=== PATIENT | female | born 1950 | race Caucasian/White ===

== ENCOUNTER 2017-05-12 08:00 | Outpatient (CLI) | payer MEDICARE | END 2017-05-12 08:01 | disposition home or self-care (01) | LOC: BICMAMMO 08:00 | PROVIDERS: ATTEND Obstetrics & Gynecology | DX: Z12.31 Encounter for screening mammogram for malignant neoplasm of breast (principal); Z85.3 Personal history of malignant neoplasm of breast | CPT/HCPCS: 77063; G0202; 77067 ==

== ENCOUNTER 2017-06-18 07:38 | Observation (INO) | payer MEDICARE, OTHER ==
[2017-06-18] MEDS ORDERED: Nitroglycerin 2% Ointment 1 INCH/1 GM Packet ONE (08:06)
[2017-06-18] MEDS ORDERED: Ondansetron HCl/PF 4 MG/2 ML Vial ONE (08:16)
[2017-06-18 08:23] LABS: #Lymphocytes 1.4 thou/uL (1.20-3.40); #Monocytes 0.6 thou/uL (0.11-0.59); #Neutrophils 9.7 thou/uL (1.40-6.50); %Basophils 0.1 % (0.0-1.0); %Eosinophils 0.4 % (0.0-10.0); %Lymphocytes 11.9 % (21.0-51.0); %Neutrophils 82.6 % (42.0-75.0); Mean Corpuscular HGB CONC 32.9 g/dL (32.0-36.0); Mean Corpuscular Hemoglobin 31.4 pg (27.0-31.0); Mean Corpuscular Volume 95.4 fl (81.0-99.0); Platelet Count 239 thou/uL (130-400); RBC Distribution Width 11.3 % (11.5-14.5); White Blood Cell (WBC) Count 11.7 thou/uL (4.8-10.8)
[2017-06-18 08:34] LABS: ALT (SGPT) 26 U/L (8-55); AST (SGOT) 26 U/L (5-34); Albumin 4.1 g/dL (3.4-4.8); Alkaline Phosphatase 85 U/L (40-150); Anion Gap 15 mmol/L (10-20); BUN (Urea Nitrogen) 10 mg/dL (9.8-20.1); Bilirubin, Total 0.4 mg/dL (0.2-1.2); CK (CPK) 89 U/L (29-168); Calc. Creatinine Clearance 0 mL/min (70-130); Carbon Dioxide 24 mmol/L (23-31); Chloride 102 mmol/L (98-107); Estimated GFR-MDRD 67; Globulin 3.8 g/dL (2.4-3.5); Glucose 119 mg/dL (80-115); Lipase 22 U/L (8-78); Potassium 3.9 mmol/L (3.5-5.1); Protein, Total 7.9 g/dL (6.0-8.3); Sodium 137 mmol/L (136-145)
[2017-06-18 08:37] LABS: CKMB 0.8 ng/mL (0-6.6); Troponin I 0.015 ng/mL (< 0.028)
--- NOTE | 2017-06-18 09:31 | RAD ---
PORTABLE UPRIGHT CHEST 1 VIEW: HISTORY: A 66-year-old female with chest pain with dizziness and nausea. COMPARISON: 08/01/09. FINDINGS: Monitor leads overlie the chest. Heart size is within normal limits. The lungs are clear. No pneum onia, edema, pleural effusion, or other acute process. IMPRESSION: No acute intrathoracic disease. POS: [facility]
[2017-06-18] MEDS ORDERED: Acetaminophen 500 MG TAB ONE (10:48)
[2017-06-18 11:23] LABS: Troponin I 0.044 ng/mL (< 0.028)
[2017-06-18] MEDS ORDERED: Guaifenesin DM 100-10/5 ML UDCUP PO PRN (12:01)
[2017-06-18] MEDS ORDERED: Acetaminophen 325 MG TAB PO PRN (12:01)
[2017-06-18 12:43] VITALS: BMI 20.3
[2017-06-18] MEDS: Nitroglycerin 2% Ointment 1 INCH/1 GM Packet TOP SCH ×2 (12:55→21:41)
[2017-06-18] MEDS: Sodium Chloride 0.9% 1,000 ML IV SCH (13:12)
[2017-06-18 14:35] LABS: Troponin I 0.061 ng/mL (< 0.028)
[2017-06-18] MEDS ORDERED: Calcium Carbonate 500 MG ChewTAB PO PRN (17:10)
--- NOTE | 2017-06-18 18:51 | CON ---
DATE OF CONSULTATION: 06/18/2017 REASON FOR CONSULTATION: Dizziness, lightheadedness and atypical chest pain. HISTORY OF PRESENT ILLNESS: Ms. Braxton is a 66-year-old woman with no previous history of underlying coronary artery disease who recently presented with dizziness and lightheadedness. Blood pressure a t this time was 177/90. She also had associated nausea. She describes shoulder blade discomfort on her left with arm radiation. No chest pressure noted. PAST MEDICAL HISTORY: Hypertension and breast cancer. PAST SURGICAL HISTORY: Appendectomy, mastectomy, and thyroidectomy. MEDICATIONS: Include bisoprolol/hydrochlorothiazide. REVIEW OF SYSTEMS: Ten point review of systems is reviewed as above, otherwise negative. PHYSICAL EXAMINATION: GENERAL: Patient is a pleasant female who is in no acute distress. The patient appears her stated a ge. VITAL SIGNS: Blood pressure 155/78, pulse 82, respirations 20. NEUROLOGIC: The patient is alert and oriented times 3 with no focal neurologic deficits. HEENT: Sclerae without icterus. Mouth has moist mucous membranes with normal pallor. NECK: No JVD. Carotid upstroke brisk. No bruits bilaterally. LUNGS: Clear to auscultation with unlabored respirations. BACK: No scoliosis or kyphosis. CARDIAC: Regular rate and rhythm with normal S1 and S2. No S3 or S4 noted. No significant rubs, murmurs, thrills, or gallops noted throughout the precordium. PMI is not displaced. There is no parasternal heave. ABDOMEN: Soft, nontender, nondistended. No peritoneal signs present. No hepatosplenomegaly. No abnormal striae. EXTREMITIES: 2+ femoral and 2+ dorsalis pedis pulses. No cyanosis, clubbing, or edema. SKIN: No gross abnormalities. PERTINENT LABORATORY DATA: Hemoglobin 12, creatinine 0.84, peak troponin 0.061, BNP of 1343. IMPRESSION: 1. Dizziness, lightheadedness and nausea. 2. Left arm pain. RECOMMENDATIONS: From a CV standpoint, this appears to be more consistent with dysrhythmia with dizz iness, lightheadedness, nausea, and angina. Would recommend an echo with Doppler and continue to mon itor on tele. Stress test has been ordered. If all of the above is negative, would recommend outpat ient event recorder to assess for significant dysrhythmias.
--- NOTE | 2017-06-18 19:09 | HP ---
REASON FOR ADMISSION: Chest pain, demand ischemia. HISTORY OF PRESENT ILLNESS: The patient gives history of sitting in a recliner around [address] [facility]. She was having her second cup of coffee. She suddenly started feeling dizzy and felt nauseated. When she tried to get up, this made her vomit nearly two times. She had to close her eyes to feel comfortable. Whenever she tried to open her eyes, she would feel dizzy and throw up again. She also mentions that her sinuses are being full from last 1 week and thought this was all related to that. Around this time, she started to have chest discomfort with radiation to her neck and left upper ext remity. She quietly sat down and was waiting for her to wake up. This happened around 5:30 and patient called EMS and came here. The chest discomfort was off and on. No complaints of palpita tions, PND or orthopnea. The patient also was thinking that she has had left radical mastectomy and thought that her scarring of tissues might have caused this pain. The patient has had a stress test before 1990 and as far she knows was negative. She has never had angiogram before. PAST MEDICAL AND SURGICAL HISTORY: Hypertension, history of breast cancer with left radical mastecto my in 1990 and has finished tamoxifen course for 5 years after that. Right lobe thyroidectomy, appen dectomy. CURRENT MEDICATIONS: The patient is on bisoprolol, hydrochlorothiazide 2.5/6.25 mg p.o. daily, multi vitamin 1 tab once daily, calcium with vitamin D3 two tabs daily. ALLERGIES: No known drug allergies. PERSONAL HISTORY: Does not abuse alcohol or drugs. No history of smoking. FAMILY HISTORY: Mom of kidney issues at the age of 42 years. Father at the age of 88 year s. She has had history of stroke and coronary artery disease. CODE STATUS: FULL. 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 REVIEW OF SYSTEMS: The following complete review of systems was negative, unless otherwise mentioned in the HPI or below: Constitutional: Weight loss or gain, ability to conduct usual activities. Skin: Rash, itching. Eyes: Double vision, pain. ENT/Mouth: Nose bleeding, neck stiffness, pain, tenderness. Cardiovascular: Palpitations, dyspnea on exertion, orthopnea. Respiratory: Shortness of breath, wheezing, cough, hemoptysis, fever or night sweats. Gastrointestinal: Poor appetite, abdominal pain, heartburn, nausea, vomiting, constipation, or diarr hea. Genitourinary: Urgency, frequency, dysuria, nocturia. Musculoskeletal: Pain, swelling. Neurologic/Psychiatric: Anxiety, depression. Allergy/Immunologic: Skin rash, bleeding tendency. PHYSICAL EXAMINATION: GENERAL: The patient is a 66-year-old female who is currently not in any chest pain or distress. VITAL SIGNS: Blood pressure 182/90, pulse 90 per minute, respiratory rate 20 per minute, temperature 98.2 degrees Fahrenheit, saturating 97% on room air. NECK: Supple, no elevated JVD. EYES: Extraocular muscles intact. Pupils reacting to light. ORAL CAVITY: Mucous membranes are moist. No exudates or congestion. CARDIOVASCULAR SYSTEM: S1, S2 heard. Regular rhythm. RESPIRATORY SYSTEM: Air entry 1+ bilaterally. No rales or rhonchi. ABDOMEN: Soft, bowel sounds heard. No tenderness, rigidity or guarding. EXTREMITIES: No peripheral edema or calf tenderness. VASCULAR SYSTEM: Peripheral pulses 2+ bilateral, no ischemic ulcerations or gangrene. CENTRAL NERVOUS SYSTEM: No gross focal deficits seen. Patient is alert, awake, oriented well. PSYCHIATRIC SYSTEM: The patient's mood is euthymic. No hallucinations or delusions. IMAGING DATA AND LABORATORY DATA: EKG done shows normal sinus rhythm at 90 beats per minute. There are signs of LVH. First set of troponin is negative. Second set is 0.04. BNP is 343, albumin is 4. 1. Chest x-ray done shows no acute cardiopulmonary abnormalities. White count of 11, hemoglobin and hematocrit 12 and 36, platelet count is 239 with 82% neutrophils. CLINICAL IMPRESSION AND PLAN: The patient will be under observation on telemetry for chest pain with indeterminate troponin and demand ischemia. She will be on nitro paste half inch q.8 hourly along w ith full dose Lovenox at 55 mg subcu twice daily. We will continue her on bisoprolol at 5 mg daily a long with aspirin. Normal saline at 50 mL per hour. We will obtain orthostatic blood pressures. A nuclear stress test along with echo with 2D Doppler will be obtained as well. We will consult Dr. Jayesh solis in view of her indeterminate cardiac enzymes for close monitoring during stress test. We angelito l continue to closely monitor her on telemetry floor.
[2017-06-18] MEDS: Enoxaparin Sodium 60 MG/0.6 ML SYRINGE SC SCH (20:29)
[2017-06-18] MEDS: Famotidine 20 MG TAB PO SCH (20:31)
[2017-06-19] MEDS: Nitroglycerin 2% Ointment 1 INCH/1 GM Packet TOP SCH ×2 (05:00→13:05)
[2017-06-19 05:33] LABS: #Eosinphils 0.1 thou/uL (0.0-0.7); #Monocytes 0.6 thou/uL (0.11-0.59); #Neutrophils 3.9 thou/uL (1.40-6.50); %Basophils 0.3 % (0.0-1.0); %Eosinophils 1.6 % (0.0-10.0); %Lymphocytes 30.6 % (21.0-51.0); %Monocytes 9.5 % (0.0-10.0); %Neutrophils 57.9 % (42.0-75.0); Hemoglobin 11.4 g/dL (12.0-16.0); Mean Corpuscular Hemoglobin 31.3 pg (27.0-31.0); Mean Corpuscular Volume 94.9 fl (81.0-99.0); Mean Platelet Volume 9.2 fL (7.4-10.4); Platelet Count 226 thou/uL (130-400); RBC Distribution Width 11.3 % (11.5-14.5); Red Blood Cell (RBC) Count 3.64 mill/uL (4.20-5.40); White Blood Cell (WBC) Count 6.7 thou/uL (4.8-10.8)
[2017-06-19 06:01] LABS: Anion Gap 13 mmol/L (10-20); BUN (Urea Nitrogen) 11 mg/dL (9.8-20.1); Calc. Creatinine Clearance 61 mL/min (70-130); Calcium 9.1 mg/dL (7.8-10.44); Carbon Dioxide 24 mmol/L (23-31); Cardiac Risk 5.8 (Less than 4.5); Chloride 108 mmol/L (98-107); Cholesterol 192 mg/dl (< 200 Desired); Estimated GFR-MDRD 71; Glucose 86 mg/dL (80-115); HDL Cholesterol 33 mg/dL (>60 Neg Risk); LDL Cholesterol, Calculated 137 mg/dL; Potassium 4.1 mmol/L (3.5-5.1); Sodium 141 mmol/L (136-145); Triglycerides 112 mg/dL (Less than 150)
[2017-06-19] MEDS: Sodium Chloride 0.9% 1,000 ML IV SCH (07:17)
[2017-06-19] MEDS ORDERED: Ketorolac Tromethamine 30 MG/ML VIAL IVP SCH (09:00)
[2017-06-19] MEDS ORDERED: Aspirin 325 MG TAB PO SCH (09:00)
[2017-06-19] MEDS ORDERED: Bisoprolol Fumarate 5 MG TAB PO SCH (09:00)
[2017-06-19] MEDS: Enoxaparin Sodium 60 MG/0.6 ML SYRINGE SC SCH (09:17)
[2017-06-19] MEDS: Famotidine 20 MG TAB PO SCH (09:21)
[2017-06-19 12:18] VITALS: BP 150/71; TEMP 98.7
[2017-06-19] MEDS ORDERED: Amoxicillin/Potassium Clav 875 MG TAB PO SCH ×2 (12:30→21:00)
[2017-06-19] MEDS ORDERED: ADENOSINE 60 MG/20 ML VIAL ONE (13:17)
--- NOTE | 2017-06-19 13:32 | PRG ---
DATE OF SERVICE: 06/19/2017 SUBJECTIVE: Ms. Braxton is doing well, no recurrent episodes of dizziness, lightheadedness, or left a rm pain. Her recent stress study was negative for ischemia. OBJECTIVE: VITAL SIGNS: Blood pressure 150/71, pulse 90, temperature 98.7. LUNGS: Clear to auscultation. CARDIAC: Regular rate and rhythm. ABDOMEN: Soft, nontender, nondistended. EXTREMITIES: No edema. IMPRESSION: 1. Atypical chest pain. 2. Dizziness and lightheadedness. RECOMMENDATIONS: Ms. Braxton is unlikely to have underlying coronary disease as the precipitating luis nt. We would recommend a 3-week outpatient event recorder to assess for any significant dysrhythmias . It would be okay from my standpoint to discharge home.
--- NOTE | 2017-06-19 13:43 | NM ---
NUCLEAR MEDICINE CARDIAC SPECT WITH EJECTION FRACTION AND WALL MOTION: HISTORY: A 66-year-old female with chest pain. The patient was injected with 29.8 mCi Technetium 99m sestamibi intravenously for stress images and t he patient was injected with 10.0 mCi Technetium 99m sestamibi intravenously for resting images. Multiple SPECT images in the short axis, vertical long axis, and horizontal long axis demonstrate no scan evidence for infarct or ischemia. TID 0.91. LHR 0.31. EDV 74 mL. Ejection fraction 55%. MYOCARDIAL PERFUSION WALL MOTION: Wall motion is unremarkable. IMPRESSION: Unremarkable nuclear medicine cardiac SPECT with ejection fraction and wall motion. POS: [facility]
--- NOTE | 2017-06-19 17:19 | DIS ---
DATE OF ADMISSION: 06/18/2017 DATE OF DISCHARGE: 06/19/2017 CONDITION AT THE TIME OF DISCHARGE: Stable and improved. DISCHARGE DIAGNOSES: 1. Dizziness of unclear etiology, likely orthostatic hypotension. 2. Noncardiac chest pain. 3. History of essential hypertension. 4. History of breast cancer with left radical mastectomy in 1990. 5. Possible acute sinusitis. DISCHARGE DISPOSITION: Home. PRIMARY CARE PHYSICIAN: Dr. Wilma Monroy. DISCHARGE MEDICATIONS: Calcium with vitamin D daily, multivitamin daily, bisoprolol/hydrochlorothiaz bertha 2.5/6.25 mg 1 tablet daily, aspirin 81 mg daily, Augmentin 875 mg p.o. b.i.d. for 5 days CONSULTATIONS INHOUSE: Cardiology, Dr. Cherry. PROCEDURES DONE IN THE HOSPITAL: 1. Nuclear medicine stress test, which is unremarkable. EF is estimated at 55%. Wall motion is nor mal. No ischemia, no infarction. 2. Transthoracic echocardiogram. Preliminary report as per Cardiology is that it is within normal l imits. Formal results are pending. HISTORY OF PRESENT ILLNESS: Ms. Braxton is a very pleasant 66-year-old female with past medical histo ry of hypertension who presented to the emergency room for complaints of some dizziness and nausea. She had given history of sinus congestion and stuffy nose with no benefit from over the counter medic ations. Upon presentation, blood pressure was 182/90. Her EKG showed normal sinus rhythm. Her card iac enzymes were negative. She was admitted for further evaluation and care. Her BNP was elevated t o 343. She was started on b.i.d. dosing of Lovenox along with aspirin and continuation of beta block er. Cardiology was consulted in light of her indeterminate cardiac enzymes. Repeat cardiac enzyme w as 0.04 for troponin. Please see admission history and physical for further details. HOSPITAL COURSE: The patient was seen by Dr. Cherry from Cardiology. He recommended doing an ech ocardiogram along with a nuclear medicine stress test. Both were done and the results were normal. It seems like most of her symptoms are probably coming from her sinus problems either infection versu s allergy. She was started on empiric antibiotics for this and was given prescription for nasal spra y with azelastine and fluticasone for symptomatic relief. By the time of discharge, her symptoms have improved. She was not found to be orthostatic. She tole rated her antihypertensives well in the hospital. Cardiology recommended event monitor, which was ar ranged prior to her discharge with plans for outpatient Cardiology Clinic followup. Because her stre ss test and echocardiogram was normal and because she was hemodynamically stable, she was discharged from cardiology perspective and at this time is being discharged home to follow up with primary care physician. She was seen and examined prior to discharge. PHYSICAL EXAMINATION: VITAL SIGNS: Temperature 98.7, pulse of 90, respirations 16, saturating 95% on room air, blood press ure 150/71. GENERAL: No acute distress, awake, alert, oriented x3. CHEST: Clear to auscultation without any wheezing, rales or rhonchi. CARDIOVASCULAR: Rate and rhythm is regular without any murmur, rubs or gallops. ABDOMEN: Soft, nontender, nondistended. LABORATORY DATA: CBC is unremarkable except for hemoglobin at 11.4. Serum chemistry shows highest t roponin of 0.061. Lipid panel unremarkable. Lipase is normal. BNP 343. Discharge plan was discussed with the patient who verbalized understanding. Prescriptions were provi ded.
== END 2017-06-19 14:55 | disposition home or self-care (01) ==
LOC: ERS 07:38 → 2SW 12:27
PROVIDERS: ADMIT Internal Medicine; ATTEND Internal Medicine
DX: R42 Dizziness and giddiness (principal); R07.89 Other chest pain; I10 Essential (primary) hypertension; Z85.3 Personal history of malignant neoplasm of breast; Z92.3 Personal history of irradiation; Z92.21 Personal history of antineoplastic chemotherapy; Z82.3 Family history of stroke; Z79.899 Other long term (current) drug therapy; Z90.12 Acquired absence of left breast and nipple; Z90.89 Acquired absence of other organs; Z90.49 Acquired absence of other specified parts of digestive tract
CPT/HCPCS: 71045; 78452; 80048; 80053; 80061; 82550; 82553; 83690; 83880; 84484 ×2; 85025 ×2; 93005; 93017; 93306; 94760 ×2; 96361 ×2; 96372 ×2; 96374; 96375; 99285; A9500; G0378; 36415; J0153; J1650; J1885; J2405

== ENCOUNTER 2017-11-08 09:18 | Outpatient (CLI) | payer MEDICARE, OTHER | END 2017-11-08 09:19 | disposition home or self-care (01) | LOC: BICMAMMO 09:18 | PROVIDERS: ATTEND Obstetrics & Gynecology | DX: R92.2 Inconclusive mammogram (principal); Z80.3 Family history of malignant neoplasm of breast; Z85.3 Personal history of malignant neoplasm of breast | CPT/HCPCS: 77065; G0279 ==

== ENCOUNTER 2019-01-12 13:49 | Outpatient (CLI) | payer MEDICARE, OTHER ==
--- NOTE | 2019-01-12 14:26 | MMO ---
Bilateral MAMMO Bilat Screen [facility]. CLINICAL HISTORY: Patient is 68 years old and is seen for screening. The patient has the following family history of breast cancer: sister. The patient has a history of left Mastectomy - 1. VIEWS: The views performed were: bilateral craniocaudal with tomosynthesis and bilateral mediolateral oblique with tomosynthesis. FILMS COMPARED: The present examination has been compared to prior imaging studies performed at [facility] on 12/09/2005, 09/15/2009, 05/12/2017 and 11/08/2017. MAMMOGRAM FINDINGS: There are scattered fibroglandular densities. There are no suspicious masses, calcifications or areas of architectural distortion. There are benign appearing calcifications in the right breast. There are no suspicious masses, suspicious calcifications, or new areas of architectural distortion. IMPRESSION: THERE IS NO MAMMOGRAPHIC EVIDENCE OF MALIGNANCY. A ROUTINE FOLLOW-UP MAMMOGRAM IN 1 YEAR IS RECOMMENDED. THE RESULTS OF THIS EXAM WERE SENT TO THE PATIENT. ACR BI-RADS Category 2 - Benign finding MAMMOGRAPHY NOTE: 1. A negative mammogram report should not delay a biopsy if a dominant of clinically suspicious mass is present. 2. Approximately 10% to 15% of breast cancers are not detected by mammography. 3. Adenosis and dense breasts may obscure an underlying neoplasm. Reported by: HENRI QUARLES MD Electonically Signed: [id number]
== END 2019-01-12 13:50 | disposition home or self-care (01) ==
LOC: BICMAMMO 13:49
PROVIDERS: ATTEND Nurse Practitioner Adult Health
DX: Z12.31 Encounter for screening mammogram for malignant neoplasm of breast (principal)
CPT/HCPCS: 77063; 77067

== ENCOUNTER 2021-02-04 11:11 | Outpatient (CLI) | payer MEDICARE, OTHER | END 2021-02-04 11:12 | disposition home or self-care (01) | LOC: BICMAMMO 11:11 | PROVIDERS: ATTEND Registered Nurse | DX: Z12.31 Encounter for screening mammogram for malignant neoplasm of breast (principal); Z91.89 Other specified personal risk factors, not elsewhere classified; Z90.12 Acquired absence of left breast and nipple; Z80.3 Family history of malignant neoplasm of breast | CPT/HCPCS: 77063; 77067 ==

== ENCOUNTER 2022-01-17 15:10 | Emergency (ER) | payer MEDICARE, OTHER ==
[2022-01-17] MEDS ORDERED: Ondansetron PF 4 MG/2 ML Vial ONE (15:37)
[2022-01-17 15:59] LABS: #Lymphocytes 1.4 thou/uL (1.20-3.40); #Monocytes 0.3 thou/uL (0.11-0.59); #Neutrophils 4.3 thou/uL (1.40-6.50); %Basophils 0.3 % (0.0-1.0); %Eosinophils 0.4 % (0.0-10.0); %Lymphocytes 22.5 % (21.0-51.0); %Monocytes 5.3 % (0.0-10.0); %Neutrophils 71.4 % (42.0-75.0); Mean Corpuscular HGB CONC 32.9 g/dL (32.0-36.0); Mean Corpuscular Hemoglobin 30.9 pg (27.0-31.0); Mean Corpuscular Volume 93.8 fL (78.0-98.0); Mean Platelet Volume 8.6 fL (7.4-10.4); Platelet Count 219 thou/uL (130-400); RBC Distribution Width 12.7 % (11.5-14.5); Red Blood Cell (RBC) Count 3.25 mill/uL (4.20-5.40)
[2022-01-17 16:19] LABS: ALT (SGPT) 37 U/L (8-55); AST (SGOT) 42 U/L (5-34); Albumin 4.1 g/dL (3.4-4.8); Alkaline Phosphatase 55 U/L (40-110); Anion Gap 19 mmol/L (10-20); BUN (Urea Nitrogen) 26 mg/dL (9.8-20.1); Bilirubin, Total 0.2 mg/dL (0.2-1.2); Calc. Creatinine Clearance 0 mL/min (70-130); Carbon Dioxide 16 mmol/L (23-31); Chloride 110 mmol/L (98-107); Estimated GFR 43; Globulin 3.7 g/dL (2.4-3.5); Glucose 117 mg/dL (83-110); Potassium 4.9 mmol/L (3.5-5.1); Protein, Total 7.8 g/dL (5.8-8.1); Sodium 140 mmol/L (136-145)
[2022-01-17 18:16] LABS: Bilirubin Negative (Negative); Blood, Urine Negative (Negative); Clarity Clear (Clear); Glucose, Urine (Dipstick) Normal (Negative); Ketone, Urine Negative (Negative); Leukocyte Negative Leu/uL (Negative); Nitrite Negative (Negative); Protein, Urine (Dipstick) Negative (Neg-Trace); Specific Gravity, Urine 1.017 (1.002-1.036); Urobilinogen Normal mg/dL (Less than 2)
== END 2022-01-17 17:39 | disposition home or self-care (01) ==
LOC: ERS 15:10
DX: R11.2 Nausea with vomiting, unspecified (principal); I10 Essential (primary) hypertension
CPT/HCPCS: 71045; 80053; 81003; 84484; 85025; 93005; 96361; 96374; J2405

== ENCOUNTER 2022-06-03 08:50 | Outpatient (CLI) | payer MEDICARE, OTHER | END 2022-06-03 08:51 | disposition home or self-care (01) | LOC: BICMAMMO 08:50 | PROVIDERS: ATTEND Registered Nurse | DX: Z12.31 Encounter for screening mammogram for malignant neoplasm of breast (principal); M81.0 Age-related osteoporosis without current pathological fracture; Z80.3 Family history of malignant neoplasm of breast; Z91.89 Other specified personal risk factors, not elsewhere classified; Z85.3 Personal history of malignant neoplasm of breast; Z90.12 Acquired absence of left breast and nipple; Z78.0 Asymptomatic menopausal state | CPT/HCPCS: 77063; 77067; 77080 ==

== ENCOUNTER 2023-07-21 10:42 | Outpatient (CLI) | payer MEDICARE, OTHER | END 2023-07-21 10:43 | disposition home or self-care (01) | LOC: BICMAMMO 10:42 | PROVIDERS: ATTEND Registered Nurse | DX: Z12.31 Encounter for screening mammogram for malignant neoplasm of breast (principal); Z80.3 Family history of malignant neoplasm of breast; Z85.3 Personal history of malignant neoplasm of breast; Z91.89 Other specified personal risk factors, not elsewhere classified; Z90.12 Acquired absence of left breast and nipple | CPT/HCPCS: 77063; 77067 ==

== ENCOUNTER 2024-03-21 08:07 | Outpatient (CLI) | payer MEDICARE, OTHER | END 2024-03-21 08:08 | disposition home or self-care (01) | LOC: BICULT 08:07 | PROVIDERS: ATTEND Registered Nurse | DX: R10.11 Right upper quadrant pain (principal); R93.421 Abnormal radiologic findings on diagnostic imaging of right kidney | CPT/HCPCS: 76705 ==

== ENCOUNTER 2024-04-18 08:08 | Outpatient (CLI) | payer MEDICARE, OTHER | END 2024-04-18 08:09 | disposition home or self-care (01) | LOC: BICMAMMO 08:08 | PROVIDERS: ATTEND Registered Nurse | DX: M81.0 Age-related osteoporosis without current pathological fracture (principal); Z78.0 Asymptomatic menopausal state; Z79.83 Long term (current) use of bisphosphonates; M85.89 Other specified disorders of bone density and structure, multiple sites | CPT/HCPCS: 77080 ==